=== PATIENT | male | born 1960 | race Hispanic/Latino ===

== ENCOUNTER → 2019-03-12 | Outpatient (CLI) | payer OTHER ==
[~2019-03-12] MED LIST: IOPAMIDOL 300 MG/ML 15ML VIAL IT ONE; IOTHALAMATE MEGLUMINE 17.20% 250 ML BTL ONE
--- NOTE | 2019-03-12 15:18 | Diagnostic Imaging Report ---
Examination: Retrograde urethrogram. Clinical indication: Urethral stricture. Comparison examination: None available. Fluoroscopy time: 1.4 minutes DAP: 3.51 Gycm2 Air Kerma: 10.8 mGy Contrast used: 15 cc Isovue 300, 15 cc Cysto-Conray Technique: A 16 [place] Valadez catheter was gently inserted into the distal urethra and the balloon partially inflated with 1 cc saline. Dilute contrast material was then instilled in a retrograde fashion through the catheter with multiple fluoroscopic spot images obtained in steep left anterior oblique position. At the conclusion of imaging the Valadez catheter balloon was deflated and the catheter was removed. The patient tolerated the procedure well without immediate complication. Findings: Normal bulbar and penile segments of the urethra. No retrograde passage of contrast through the posterior urethra and into the bladder was identified, with patient discomfort at increased pressure of the contrast injection. Impression: Significant stricture at the posterior urethra is suspected based on failure of retrograde opacification of the prostatic or membranous segments of the urethra or the urinary bladder with contrast material as detailed above. Signed by: Dr. Fidel Scales M.D. on 03/12/2019 3:15 PM
== END ==
LOC: DX 09:29
PROVIDERS: ATTEND Urology
DX: N35.919 Unspecified urethral stricture, male, unspecified site (principal)
CPT/HCPCS: 74450; Q9958; Q9967